=== PATIENT | male | born 1940 | race Caucasian/White ===

== ENCOUNTER 2022-02-10 21:10 | Emergency (ER) | payer MEDICARE, OTHER, SELFPAY ==
[2022-02-10] VITALS (8 sets, daily range): BP systolic 105–154; BP diastolic 59–70; PULSE 55–65; RESP 18–20; TEMP 36.6; O2SAT 93–97; BMI 30.2
--- NOTE | 2022-02-10 21:21 | DI.CT.S_ITS ---
PROCEDURE: CT HEAD/BRAIN WO CON INDICATIONS: altered mental status on coumadin TECHNIQUE: Noncontrast 4.5 mm thick angled axial sections acquired from the foramen magnum to the vertex, with coronal and sagittal reformats. For radiation dose reduction, the following was used: automated exposure control, adjustment of mA and/or kV according to patient size. COMPARISON: None. FINDINGS: Image quality: Excellent. CSF spaces: Basal cisterns are patent. No extra-axial fluid collections. The ventricles are symmetric in size and shape. Note is made of a right posterior parietal ventriculostomy traversing into the right lateral ventricle and terminating just above the upper margin of the 3rd ventricle. Brain: No intracranial bleeds or masses. There is cerebral volume loss for age, with resultant ventricular and sulcal prominence. There are periventricular and deep white matter chronic small vessel ischemic changes. There is intracranial internal carotid artery atherosclerosis. Skull and face: Calvarium and visualized facial bones appear intact, without suspicious lesions. Sinuses: Visualized sinuses and mastoids are clear. IMPRESSION: No acute disease, a definite source of altered mental status is not seen. A ventriculostomy catheter traverses the right parietal region into the right lateral ventricle and both ventricles are normal in size. No intracranial hemorrhage is found. Dictated by: Joao Haynes M.D. on 02/10/2022 at 22:05 Approved by: Joao Haynes M.D. on 02/10/2022 at 22:07
--- NOTE | 2022-02-10 21:21 | ED.AMS ---
HPI - Altered Mental Status General Chief Complaint: Skin/Abscess/Foreign Body Stated Complaint: Choked on food Time Seen by Provider: 02/10/22 21:21 History of Present Illness HPI narrative: Patient is a 82-year-old male with history of atrial fibrillation on Coumadin presenting after a choking episode. He apparently lost his 1 week ago he was visiting with friends drinking alcohol which he normally does not any choked on a piece of steak. He was unconscious, friends did the Heimlich maneuver on him and got the steak out. He does not remember the event. He is confused. Has no focal deficits able to move below his parts he knows who he is but cannot remember where he is or why he is here. He apparently lives out of town he drove to his house to bring him to [employer]. He overall is a poor historian. Friend at bedside and confirms events. Related Data Allergies Allergy/AdvReac Type Severity Reaction Status Date / Time No Known Drug Allergies Allergy Verified 02/10/22 21:19 Review of Systems Review of Systems Narrative: GENERAL: Denies chills, fatigue, malaise, fever, sweats, travel HEENT: Denies sinus pain, ear pain, sore throat, difficulty swallowing, neck pain RESPIRATORY: See HPI CARDIOVASCULAR: Denies chest pain, palpitations, orthopnea, edema GASTROINTESTINAL: Denies nausea, vomiting, abdominal pain, diarrhea, constipation, melena. : Denies dysuria, frequency, incontinence, hematuria, urinary retention, flank pain. MUSCULOSKELETAL: Denies weakness, joint pain, or bony pain SKIN: No rash, no erythema, no pruritus NEUROLOGIC: Denies weakness, dizziness, headache, numbness, change in speech, confusion PSYCHIATRIC: No concerning psychosocial issues. 12 point review of systems is negative except for those stated above and HPI Patient History Social History Smoking Status: Never smoker Exam Initial Vital Signs Initial Vital Signs: Vital Signs Temperature 98 F 02/10/22 21:19 Pulse Rate 55 L 02/10/22 21:19 Respiratory Rate 20 02/10/22 21:19 Blood Pressure 111/60 02/10/22 21:19 Pulse Oximetry 97 02/10/22 21:19 GENERAL: Alert male slightly drowsy no acute distress able to follow commands HEENT: Head atraumatic,EOMI, pupils reactive, face symmetric, moist mucous membranes, no injury of tongue CARDIOVASCULAR: Regular rate and rhythm without murmurs, rubs or gallops. RESPIRATORY: Breath sounds equal bilaterally, no wheezes rales or rhonchi. ABDOMEN: Soft, nontender. Normoactive bowel sounds all 4 quadrants. No guarding or rebound. EXTREMITIES: Normal range of motion, no clubbing or edema. Neurovascularly intact NEUROLOGICAL: Alert and oriented x1.Normal gait and speech. Cranial nerves II through XII grossly intact. Good [id number], good [id number], strength equal bilaterally, no dysarthria or aphasia, sensation in tact to soft touch bilaterally, no visual changes, no facial droop SKIN: Warm, dry, no laceration, no petechiae, no rashes or lesions. Course Orders Ordered: ED Orders 02/10/22 21:21 CT head/brain wo con Stat 02/10/22 21:22 EKG-12 Lead Stat 02/10/22 21:49 Acetaminophen Stat Complete Blood Count AUTO DIFF Stat Comprehensive Metabolic Panel Stat Ethanol (ETOH) Stat Lactate (Lactic Acid) Stat Partial Thromboplastin Time Stat Prolactin Stat Prothrombin Time INR Stat Salicylate Stat 02/10/22 21:55 Blood Culture Stat 02/10/22 22:44 Urinalysis and Microscopic Stat Urine Drug Screen, Rapid Stat 02/10/22 23:04 Chest [XR chest 1V] Stat Discontinued Medications Sodium Chloride (Normal Saline 0.9%) 1,000 mls @ 150 mls/hr IV CONT AVI Last Infusion: 02/11/22 00:06 Dose: 0 mls/hr Documented by: Admin: 02/10/22 21:48 Dose: 150 mls/hr Documented by: XIAO Sodium Chloride (Normal Saline 0.9%) 1,000 mls @ 1,000 mls/hr IV BOLUS ONE Stop: 02/10/22 23:19 Last Admin: 02/11/22 00:07 Dose: Not Given Documented by: XIAO Vital Signs Vital signs: Vital Signs - 8 hr 02/10/22 21:19 02/10/22 23:04 02/10/22 23:05 Temperature 98 F Pulse Rate 55 L 63 60 Respiratory Rate 20 18 Blood Pressure 111/60 105/59 L Pulse Oximetry 97 02/10/22 23:08 02/10/22 23:30 02/10/22 23:53 Temperature Pulse Rate 55 L 59 L Respiratory Rate 19 Blood Pressure 134/65 Pulse Oximetry 95 93 96 02/10/22 23:57 02/10/22 23:59 02/11/22 00:00 Temperature Pulse Rate 60 65 Respiratory Rate Blood Pressure 154/70 H 147/68 H Pulse Oximetry 95 97 97 MDM - Altered Mental Status Lab Data Result diagrams: 02/10/22 21:49 02/10/22 21:49 Labs: Lab Results 02/10/22 02/10/22 02/10/22 Range/Units 21:49 21:49 21:49 WBC 7.3 (4.5-11.0) X10^3/uL RBC 3.78 L (4.5-5.9) X10^6/uL Hgb 13.4 L (13.5-17.5) g/dL Hct 38.7 L (41-53) % MCV 102.4 H (80-100) fL MCH 35.5 H (26-34) PG MCHC 34.6 (30-36) % RDW 14.5 (11.6-14.8) % Plt Count 150 (150-400) X10^3/uL Neut % (Auto) 59.7 (50-75) % Lymph % (Auto) 28.8 (25-40) % Upson % (Auto) 8.6 (3-14) % Eos % (Auto) 2.0 (2-4) % Baso % (Auto) 0.9 (0-2) % Neut # (Auto) 4400 (7161-2694) /uL Lymph # (Auto) 2100 (4312-2301) /uL Upson # (Auto) 600 (0-900) /uL Eos # (Auto) 100 (0-450) /uL Baso # (Auto) 100 (0-100) /uL PT 24.9 H (10.1-12.7) SECONDS INR 2.2 H (0.9-1.3) APTT 39 H (26.4-36.2) SECONDS Sodium 141 (137-145) mmol/L Potassium 4.5 (3.4-5.1) mmol/L Chloride 112 H (98-107) mmol/L Carbon Dioxide 17 L (22-32) mmol/L BUN 23 H (9-20) mg/dL Creatinine 1.06 (0.66-1.25) mg/dL Estimated GFR > 60.0 (>60) mL/min BUN/Creatinine Ratio 21.7 (6-22) Glucose 90 (80-110) mg/dL Lactate (0.7-2.1) mmol/L Calcium 8.5 (8.4-10.2) mg/dL Total Bilirubin 0.4 (0.2-1.3) mg/dL AST 40 (17-59) IU/L ALT 25 (<50) IU/L Alkaline Phosphatase 61 (38-126) U/L Total Protein 6.8 (6.3-8.2) g/dL Albumin 4.1 (3.5-5.0) g/dL Globulin 2.7 (1.7-4.1) g/dL Albumin/Globulin Ratio 1.5 (1.0-2.8) Prolactin 20.8 H (3.7-17.9) ng/mL Urine Color Urine Appearance Urine pH (4.5-8.0) Ur Specific Dixon (1.000-1.035) Urine Protein (Negative) Urine Glucose (UA) (Negative) g/dL Urine Ketones (NEGATIVE) Urine Occult Blood (Negative) Urine Nitrate (Negative) Urine Bilirubin (NEGATIVE) Urine Urobilinogen (0.2) E.U./dL Ur Leukocyte Esterase (NEGATIVE) Urine RBC (0-5/HPF) Urine WBC (0-5/HPF) Urine Bacteria (None) Ur Culture Indicated? Micro UA Comment Salicylates < 1.0 (<20) mg/dL U Opiates 300ng/mL cut (Negative) Ur Oxycodone Screen (Negative) Urine Methadone Screen (Negative) Acetaminophen < 10 (10-30) ug/mL Ur Barbiturates Screen (Negative) U Tricyclic Antidepress (Negative) Ur Phencyclidine Scrn (Negative) Ur Amphetamines Screen (Negative) U Methamphetamines Scrn (Negative) Ur MDMA Scrn (Ecstasy) (Negative) U Benzodiazepines Scrn (Negative) Urine Cocaine Screen (Negative) U Marijuana (THC) Screen (Negative) Ethyl Alcohol 212 H ( - 10) mg/dL 02/10/22 02/10/22 02/10/22 Range/Units 21:49 22:44 22:44 WBC (4.5-11.0) X10^3/uL RBC (4.5-5.9) X10^6/uL Hgb (13.5-17.5) g/dL Hct (41-53) % MCV (80-100) fL MCH (26-34) PG MCHC (30-36) % RDW (11.6-14.8) % Plt Count (150-400) X10^3/uL Neut % (Auto) (50-75) % Lymph % (Auto) (25-40) % Upson % (Auto) (3-14) % Eos % (Auto) (2-4) % Baso % (Auto) (0-2) % Neut # (Auto) (6031-7758) /uL Lymph # (Auto) (9019-1475) /uL Upson # (Auto) (0-900) /uL Eos # (Auto) (0-450) /uL Baso # (Auto) (0-100) /uL PT (10.1-12.7) SECONDS INR (0.9-1.3) APTT (26.4-36.2) SECONDS Sodium (137-145) mmol/L Potassium (3.4-5.1) mmol/L Chloride (98-107) mmol/L Carbon Dioxide (22-32) mmol/L BUN (9-20) mg/dL Creatinine (0.66-1.25) mg/dL Estimated GFR (>60) mL/min BUN/Creatinine Ratio (6-22) Glucose (80-110) mg/dL Lactate 2.8 H (0.7-2.1) mmol/L Calcium (8.4-10.2) mg/dL Total Bilirubin (0.2-1.3) mg/dL AST (17-59) IU/L ALT (<50) IU/L Alkaline Phosphatase (38-126) U/L Total Protein (6.3-8.2) g/dL Albumin (3.5-5.0) g/dL Globulin (1.7-4.1) g/dL Albumin/Globulin Ratio (1.0-2.8) Prolactin (3.7-17.9) ng/mL Urine Color Yellow Urine Appearance Clear Urine pH 5.5 (4.5-8.0) Ur Specific Dixon 1.020 (1.000-1.035) Urine Protein Negative (Negative) Urine Glucose (UA) Negative (Negative) g/dL Urine Ketones Negative (NEGATIVE) Urine Occult Blood Trace-intact (Negative) Urine Nitrate Negative (Negative) Urine Bilirubin Negative (NEGATIVE) Urine Urobilinogen 0.2 (0.2) E.U./dL Ur Leukocyte Esterase Negative (NEGATIVE) Urine RBC None seen (0-5/HPF) Urine WBC None seen (0-5/HPF) Urine Bacteria None seen (None) Ur Culture Indicated? Cult not indicated Micro UA Comment Microscopic normal Salicylates (<20) mg/dL U Opiates 300ng/mL cut Positive H (Negative) Ur Oxycodone Screen Negative (Negative) Urine Methadone Screen Negative (Negative) Acetaminophen (10-30) ug/mL Ur Barbiturates Screen Negative (Negative) U Tricyclic Antidepress Negative (Negative) Ur Phencyclidine Scrn Negative (Negative) Ur Amphetamines Screen Negative (Negative) U Methamphetamines Scrn Negative (Negative) Ur MDMA Scrn (Ecstasy) Negative (Negative) U Benzodiazepines Scrn Negative (Negative) Urine Cocaine Screen Negative (Negative) U Marijuana (THC) Screen Negative (Negative) Ethyl Alcohol ( - 10) mg/dL Imaging Data CT scan - head: Radiologist's Impression: PROCEDURE:? CT HEAD/BRAIN WO CON ? INDICATIONS:? altered mental status on? coumadin ? TECHNIQUE:? Noncontrast 4.5 mm thick angled axial sections acquired from the foramen magnum to the vertex, with coronal and sagittal reformats.? For radiation dose reduction, the following was used:? automated exposure control, adjustment of mA and/or kV according to patient size.? ? COMPARISON:? None. ? FINDINGS:? Image quality:? Excellent.? ? CSF spaces:? Basal cisterns are patent.? No extra-axial fluid collections.? The ventricles are symmetric in size and shape.? Note is made of a right posterior parietal ventriculostomy traversing into the right lateral ventricle and terminating just above the upper margin of the 3rd ventricle. ? Brain:? No intracranial bleeds or masses.? There is cerebral volume loss for age, with resultant ventricular and sulcal prominence.? There are periventricular and deep white matter chronic small vessel ischemic changes.? There is intracranial internal carotid artery atherosclerosis.? ? Skull and face:? Calvarium and visualized facial bones appear intact, without suspicious lesions.? ? Sinuses:? Visualized sinuses and mastoids are clear.? ? IMPRESSION:? No acute disease, a definite source of altered mental status is not seen.? A ventriculostomy catheter traverses the right parietal region into the right lateral ventricle and both ventricles are normal in size.? No intracranial hemorrhage is found. ? ? Dictated by: Joao Haynes M.D. on 02/10/2022 at 22:05 ? ? Chest x-ray: Radiologist's Impression: PROCEDURE:? XR CHEST 1V ? INDICATIONS:? choking episode ? TECHNIQUE:? One view of the chest was acquired.? ? COMPARISON:? None. ? FINDINGS:? ? Surgical changes and devices:? Midthoracic spine stimulator electrode plates noted..? ? Lungs and pleura:? Lungs are clear.? No pleural effusions or pneumothorax.? ? Mediastinum:? Mediastinal contours appear normal.? Heart size is normal.? ? Bones and chest wall:? No suspicious bony lesions.? Overlying soft tissues appear unremarkable.? ? IMPRESSION:? Spinal stimulator electrode plates noted at the mid chest level, no acute disease, no aspiration found. ? ? Dictated by: Joao Haynes M.D. on 02/10/2022 at 23:18 ECG Data Interpretation: Atrial fibrillation rate [address] changes no priors to compare MDM Narrative Medical decision making narrative: Patient is found to be intoxicated is after choking event. There is no sign of aspiration pneumonia at this time. Patient becomes more awake and responsive. He typically ambulates with a walker he is able to do so in the emergency department. This time patient likely does not remember the episode due to his significant alcohol intoxication. At this time there is no focal deficit lactic acid mildly elevated at 2.8 likely from the events. At this time recommend close outpatient follow-up in going home to rest. Discharge Plan Departure Patient Disposition: Home Clinical Impression: Choking due to food in larynx, Alcohol intoxication Instructions: DI for Choking Episode Activity Restrictions/Additional Instructions: *You have been diagnosed with choking episode *What to do: Sorry that you had a choking episode today. I am glad that you are okay. Monitor for any signs of pneumonia. *Continue to take medications as directed *Follow up with your primary care provider in 2-3 days or call [phone] *Return to ER if you should have coughing fever chest pain or any new, worsening or concerning symptoms
[2022-02-10] MEDS: SODIUM CHLORIDE 0.9% 1,000 ML 150 ML IV (21:48)
[2022-02-10 22:08] LABS: Add Manual Diff / Slide Review NO; Basophils Absolute Auto 100 /uL (0-100); Basophils Percent Auto 0.9 % (0-2); Eosinophils Absolute Auto 100 /uL (0-450); Hematocrit 38.7 % (41-53); Hemoglobin 13.4 g/dL (13.5-17.5); Lymphocytes Absolute Auto 2100 /uL (1100-4500); Lymphocytes Percent Auto 28.8 % (25-40); Mean Corpuscular HGB Conc 34.6 % (30-36); Mean Corpuscular Hemoglobin 35.5 PG (26-34); Mean Corpuscular Volume 102.4 fL (80-100); Monocytes Absolute Auto 600 /uL (0-900); Monocytes Percent Auto 8.6 % (3-14); Neutrophils Absolute Auto 4400 /uL (1500-7000); Neutrophils Percent Auto 59.7 % (50-75); Platelet Count 150 X10^3/uL (150-400); Red Blood Cell Count 3.78 X10^6/uL (4.5-5.9); Red Cell Distribution Width 14.5 % (11.6-14.8); White Blood Cell Count 7.3 X10^3/uL (4.5-11.0)
[2022-02-10 22:14] LABS: INR 2.2 (0.9-1.3); Prothrombin Time 24.9 SECONDS (10.1-12.7)
[2022-02-10 22:16] LABS: PTT Partial Thromboplastin Tim 39 SECONDS (26.4-36.2)
[2022-02-10 22:17] LABS: Lactate (Lactic Acid) 2.8 mmol/L (0.7-2.1)
[2022-02-10 22:31] LABS: Acetaminophen < 10 ug/mL (10-30); Alanine Aminotransferase 25 IU/L (<50); Albumin 4.1 g/dL (3.5-5.0); Albumin Globulin Ratio 1.5 (1.0-2.8); Alkaline Phosphatase 61 U/L (38-126); Aspartate Aminotransferase 40 IU/L (17-59); BUN Creatinine Ratio 21.7 (6-22); Bilirubin Total 0.4 mg/dL (0.2-1.3); Blood Urea Nitrogen 23 mg/dL (9-20); Calcium 8.5 mg/dL (8.4-10.2); Carbon Dioxide 17 mmol/L (22-32); Chloride 112 mmol/L (98-107); Estimated Glomerular Filt Rate > 60.0 mL/min (>60); Ethanol (ETOH) 212 mg/dL; Globulin 2.7 g/dL (1.7-4.1); Glucose 90 mg/dL (80-110); HEMOLYSIS < 15 (0-50); Potassium 4.5 mmol/L (3.4-5.1); Salicylate < 1.0 mg/dL (<20); Sodium 141 mmol/L (137-145); Total Protein 6.8 g/dL (6.3-8.2)
[2022-02-10 22:47] LABS: Prolactin 20.8 ng/mL (3.7-17.9)
[2022-02-10 22:51] LABS: Appearance Urine UA CLEAR; Bilirubin Urine UA NEGATIVE (NEGATIVE); Color Urine UA YELLOW; Glucose Urine UA NEGATIVE (Negative); Ketones Urine UA NEGATIVE (NEGATIVE); Leukocyte Esterase Urine UA NEGATIVE (NEGATIVE); Nitrite Urine UA NEGATIVE (Negative); Occult Blood Urine UA TRACE-INTACT (Negative); Protein Urine UA NEGATIVE (Negative); Urobilinogen Urine UA 0.2 E.U./dL (0.2); pH Urine UA 5.5 (4.5-8.0)
[2022-02-10 22:56] LABS: UR Morphine/Opiate cutoff 300 Positive (Negative); Ur Creatinine Normal (Normal); Ur Specific Gravity Normal (Normal); Urine Amphetamines Negative (Negative); Urine Barbiturates Negative (Negative); Urine Benzodiazepines Negative (Negative); Urine Cocaine Negative (Negative); Urine MDMA Negative (Negative); Urine Methadone Negative (Negative); Urine Methamphetamines Negative (Negative); Urine Oxycodone Negative (Negative); Urine Phencyclidine Negative (Negative); Urine Tetrahydrocannabinol Negative (Negative); Urine Tricyclic Antidepressant Negative (Negative); Urine pH Normal (Normal)
[2022-02-10 23:01] LABS: Bacteria Urine None Seen; RBC Urine None Seen (0-5/HPF); WBC Urine None Seen (0-5/HPF)
[2022-02-10 23:02] LABS: Culture Indicated Urine Cult Not Indicated; Urine Comments Microscopic Normal
--- NOTE | 2022-02-10 23:04 | DI.RAD.S_ITS ---
PROCEDURE: XR CHEST 1V INDICATIONS: choking episode TECHNIQUE: One view of the chest was acquired. COMPARISON: None. FINDINGS: Surgical changes and devices: Midthoracic spine stimulator electrode plates noted.. Lungs and pleura: Lungs are clear. No pleural effusions or pneumothorax. Mediastinum: Mediastinal contours appear normal. Heart size is normal. Bones and chest wall: No suspicious bony lesions. Overlying soft tissues appear unremarkable. IMPRESSION: Spinal stimulator electrode plates noted at the mid chest level, no acute disease, no aspiration found. Dictated by: Joao Haynes M.D. on 02/10/2022 at 23:18 Approved by: Joao Haynes M.D. on 02/10/2022 at 23:18
[2022-02-11] VITALS: O2SAT 97
[2022-02-11 00:02] LABS: Reflexed Lactate in 2 Hours Y
== END 2022-02-11 00:20 | disposition home or self-care (01) ==
PROVIDERS: Emergency Provider Emergency Medicine
DX: T17.328A Food in larynx causing other injury, initial encounter (principal); F10.129 Alcohol abuse with intoxication, unspecified; R41.0 Disorientation, unspecified; I48.91 Unspecified atrial fibrillation; Y90.7 Blood alcohol level of 200-239 mg/100 ml; Z79.01 Long term (current) use of anticoagulants
CPT/HCPCS: 36415; 70450; 71045; 80053; 80305; 80320; 80329; 81001; 83605; 84146; 85025; 85610; 85730; 87040; 93005; 93010; 99284; G0480